=== PATIENT | female | born 1970 | race Two or more races ===

== ENCOUNTER 2024-02-23 09:06 | Emergency (ER) | payer BC, MEDICAID, OTHER ==
[~2024-02-23] VITALS: Ht 157.5 cm; Wt 43.0 kg
[~2024-02-23 09:06] MED LIST: DULO30CA2 PO; LEVO500T2 MT; TRAM50TA94 MT
[2024-02-23 09:14] VITALS: O2SAT 100
[2024-02-23 09:49] LABS: BASOPHILS % 0.6 % (0.0-2.0); EOSINOPHILS % 0.3 % (0.0-5.0); HEMATOCRIT. 38.8 % (36.0-48.0); LYMPHOCYTES % 18.7 % (20.0-50.0); MEAN CORPUSCULAR HEMOGLOBIN 31.1 pg (28.0-32.0); MEAN CORPUSCULAR HGB CONC 33.6 g/dL (31.0-37.0); MEAN CORPUSCULAR VOLUME 92.8 fL (81.0-99.0); MEAN PLATELET VOLUME 7.2 fl (7.4-10.4); MONOCYTES % 3.1 % (2.0-8.0); NEUTROPHILS % 77.3 % (40.0-76.0); PLATELET 361 x1000/uL (130-400); RED BLOOD CELL COUNT 4.18 mill/uL (4.2-5.4); RED CELL DISTRIBUTION WIDTH 13.1 % (11.6-14.6); WHITE BLOOD COUNT 6.2 x1000/uL (4.5-11.0)
[2024-02-23 09:59] LABS: CHLORIDE 104 mEq/L (98-107); POTASSIUM 3.2 mEq/L (3.5-5.1); SODIUM 136 mEq/L (136-145)
[2024-02-23 10:00] LABS: CARBON DIOXIDE 24 mEq/L (21-32)
[2024-02-23 10:01] LABS: CALCIUM 9.9 mg/dL (8.7-10.4)
[2024-02-23 10:05] LABS: CREATININE 0.8 mg/dL (0.6-1.0); GLUCOSE 110 mg/dL (70-105); UREA NITROGEN BLOOD 12 mg/dL (9-23)
[2024-02-23 10:21] LABS: TROPONIN I HIGH SENSITIVITY < 4 ng/L (3.0-34)
[2024-02-23 11:00] LABS: CLARITY URINE CLEAR (CLEAR); COLOR URINE YELLOW (YELLOW); GLUCOSE URINE NEGATIVE (NEGATIVE); KETONES URINE NEGATIVE (NEGATIVE); LEUKOCYTE ESTERASE URINE NEGATIVE (NEGATIVE); NITRITE URINE NEGATIVE (NEGATIVE); OCCULT BLOOD URINE NEGATIVE (NEGATIVE); PH URINE 8.5 (4.5-8.0); PROTEIN URINE NEGATIVE (NEGATIVE); SPECIFIC GRAVITY URINE 1.004 (1.005-1.030); UROBILINOGEN URINE 0.2 E.U./dL (0.2-1.0)
[2024-02-23 11:58] VITALS: BP 118/79; PULSE 72; RESP 18; TEMP 36.94740; O2SAT 99
== END 2024-02-23 12:03 | disposition home or self-care (01) ==
LOC: ER 09:06
DX: R00.2 Palpitations (principal); F32.A Depression, unspecified; Z88.8 Allergy status to other drugs, medicaments and biological substances
CPT/HCPCS: 36415; 71045; 80048; 81003; 81025; 83735; 84443; 84484; 85025; 93005; 99285